=== PATIENT | male | born 2000 | race Caucasian/White ===

== ENCOUNTER 2023-05-04 16:26 | Emergency (ER) | payer OTHER, MEDICAID ==
[~2023-05-04] VITALS: Ht 175.3 cm; Wt 105.0 kg
[2023-05-04 16:38] VITALS: O2SAT 97
[2023-05-04] MEDS ORDERED: KETOROLAC 30MG/ML VIAL IM ONE (17:00)
[2023-05-04] MEDS ORDERED: NAPR-681 MT (18:26)
[2023-05-04 18:45] VITALS: BP 129/82; PULSE 95; RESP 18; TEMP 98.9
== END 2023-05-04 18:46 | disposition home or self-care (01) ==
LOC: ER 17:56
DX: S50.12XA Contusion of left forearm, initial encounter (principal); S60.222A Contusion of left hand, initial encounter; W19.XXXA Unspecified fall, initial encounter; Y93.89 Activity, other specified; Y92.89 Other specified places as the place of occurrence of the external cause; Y99.8 Other external cause status
CPT/HCPCS: 73090; 73130; 96372; 99284; J1885; Z7610